=== PATIENT | female | born 1950 | race Caucasian/White ===

== ENCOUNTER 2018-10-25 10:18 | Observation (INO) | payer OTHER, MEDICARE ==
[2018-10-25 10:22] VITALS: BMI 21.9
[2018-10-25] MEDS ORDERED: ASPIRIN 81 MG CHEWABLE TABLETS PO ONE (10:37)
--- NOTE | 2018-10-25 10:41 | PDOC ---
History of Present Illness - General Chief Complaint: Chest Pain Stated Complaint: CHEST PAIN RADIATES LT ARM Time Seen by Provider: 10/25/18 10:33 - History of Present Illness Initial Comments: 10/25/18 11:13 68f with pmh of hyperlipidemia presents to the ED with left sided chest pain and nausea. The pain was sharp enough to wake her up and radiated down her left arm. . She took an aspirin after which the pain somewhat subsided. She had has milder pain over the left chest for the past 3 days on and off. Last saw her central supply assistant 2 years ago, with negative stress test. Denies headache, sob, abdominal pain, diaphoresis, dysuria. Past History - Past Medical History Allergies/Adverse Reactions: Allergies Allergy/AdvReac Type Severity Reaction Status Date / Time artichoke Allergy Verified 10/25/18 10:23 scallops Allergy Verified 10/25/18 10:23 Sulfa (Sulfonamide Allergy Verified 10/25/18 10:23 Antibiotics) COPD: No - Surgical History Abdominal Surgery: Yes (hernia repair) - Suicide/Smoking/Psychosocial Hx Smoking History: Never smoked Hx Alcohol Use: Yes Drug/Substance Use Hx: No Review of Systems - Review of Systems Able to Perform ROS?: Yes Is the patient limited Luxembourgish proficient: No Constitutional: No: Symptoms Reported HEENTM: No: Symptoms Reported Respiratory: No: Symptoms reported Cardiac (ROS): Yes: See HPI ABD/GI: Yes: See HPI : No: Symptoms Reported Musculoskeletal: Yes: See HPI Integumentary: No: Symptoms Reported All Other Systems: Reviewed and Negative *Physical Exam - Vital Signs Last Vital Signs Temp Pulse Resp BP Pulse Ox 98.5 F 79 16 165/67 97 10/25/18 10:19 10/25/18 10:19 10/25/18 10:19 10/25/18 10:19 10/25/18 10:19 - Physical Exam General Appearance: Yes: Nourished, Appropriately Dressed. No: Apparent Distress HEENT: positive: EOMI, JIMI, Normal ENT Inspection Respiratory/Chest: positive: Lungs Clear, Normal Breath Sounds. negative: Chest Tender, Respiratory Distress Cardiovascular: positive: Regular Rhythm, Regular Rate, S1, S2 Gastrointestinal/Abdominal: positive: Normal Bowel Sounds, Flat, Soft. negative : Tender Musculoskeletal: positive: Normal Inspection. negative: CVA Tenderness Extremity: positive: Normal Capillary Refill, Normal Inspection, Normal Range of Motion Integumentary: positive: Normal Color, Dry, Warm Neurologic: positive: Fully Oriented, Alert, Normal Mood/Affect, Normal Response , Responsive ED Treatment Course - LABORATORY CBC & Chemistry Diagram: 10/25/18 10:55 10/25/18 10:55 - ADDITIONAL ORDERS Additional order review: Laboratory Results 10/25/18 10/25/18 10/25/18 10:55 10:55 10:55 PT with INR 11.70 INR 0.99 Sodium 140 Potassium 4.0 Chloride 106 Carbon Dioxide 28 Anion Gap 7 L BUN 14.0 Creatinine 0.7 Est GFR (CKD-EPI)AfAm 102.46 Est GFR (CKD-EPI)NonAf 88.40 Random Glucose 138 H Calcium 9.8 Magnesium 2.3 Total Bilirubin 0.6 AST 20 ALT 31 Alkaline Phosphatase 85 Creatine Kinase 64 Troponin I < 0.02 Total Protein 7.8 Albumin 4.1 10/25/18 10:55 RBC 4.37 MCV 97.5 H MCHC 34.7 RDW 13.2 MPV 8.2 Neutrophils % 67.6 Lymphocytes % 24.8 Monocytes % 6.4 Eosinophils % 0.6 Basophils % 0.6 - RADIOLOGY Radiology Studies Ordered: Category Date Time Status CHEST PA & LAT [RAD] Stat Radiology 10/25/18 10:37 Ordered - Medications Given in the ED: ED Medications Discontinued Medications Generic Name Dose Route Start Last Admin Trade Name Freq PRN Reason Stop Dose Admin Aspirin 162 mg 10/25/18 10:37 10/25/18 11:44 Asa - PO 10/25/18 10:38 162 mg ONCE ONE Administration Ondansetron HCl 4 mg 10/25/18 11:15 10/25/18 11:44 Zofran Injection IVPUSH 10/25/18 11:16 4 mg ONCE ONE Administration Medical Decision Making - Medical Decision Making 10/25/18 12:18 68 with left sided chest pain. Spoke to patient's central supply assistant who confirmed that her EKG today is identical to the one he has from his office. Normal sinus rhythm, left axis deviation, RBBB. She had a subsequent stress test after her last ekg which was normal. Troponin negative. Repeat trops due at 2pm 10/25/18 13:02 Patient now comfortable. Spoke to the patient about staying over for observation vs discharge after 2 trops, decided to be on the safer side and stay overnight for observation. *DC/Admit/Observation/Transfer Diagnosis at time of Disposition: Chest pain - Discharge Dispostion Decision to Admit order: Yes Decision to Admit order Date/Time: Decision to Admit Order Category Date Time Status Decision to Admit to Hospital Routine Admission 10/25/18 13:00 Ordered - Referrals Referrals: Nancy Figueroa MD [Primary Care Provider] - - Patient Instructions - Post Discharge Activity
[2018-10-25] MEDS ORDERED: ONDANSETRON 4 MG/2 ML VIAL IVPUSH ONE (11:15)
[2018-10-25 11:24] LABS: BASO % 0.6 % (0-2.0); EOS % 0.6 % (0-4.5); HEMATOCRIT 42.6 % (32.4-45.2); HEMOGLOBIN 14.8 GM/dL (10.7-15.3); LYMPH % 24.8 % (8-40); MCH 33.8 pg (25.7-33.7); MCHC 34.7 g/dl (32.0-36.0); MEAN CELL VOLUME 97.5 fl (80-96); MEAN PLT VOLUME 8.2 fl (7.5-11.1); MONO % 6.4 % (3.8-10.2); NEUT % 67.6 % (42.8-82.8); PLATELET COUNT 254 K/MM3 (134-434); RBC 4.37 M/mm3 (3.60-5.2); RDW 13.2 % (11.6-15.6); WHITE BLOOD COUNT 6.9 K/mm3 (4.0-10.0)
[2018-10-25 11:31] LABS: INR 0.99 (0.83-1.09); PROTHROMBIN TIME (PATIENT) 11.7 SEC (9.7-13.0)
[2018-10-25] MEDS ORDERED: ONDANSETRON 4 MG/2 ML VIAL ONE (11:41)
[2018-10-25] MEDS ORDERED: ASPIRIN 81 MG CHEWABLE TABLETS ONE (11:41)
[2018-10-25 11:52] LABS: ALBUMIN 4.1 g/dl (3.4-5.0); BILIRUBIN,TOTAL 0.6 mg/dL (0.2-1); CALCIUM 9.8 mg/dL (8.5-10.1); CREATININE 0.7 mg/dL (0.55-1.3); MAGNESIUM 2.3 mg/dL (1.8-2.4); TOT PROT 7.8 g/dl (6.4-8.2)
--- NOTE | 2018-10-25 12:04 | PDOC ---
Documentation entered by Oswaldo Burt SCRIBE, acting as scribe for Francisca Hutchinson MD. Francisca Hutchinson MD: This documentation has been prepared by the Javed barbosa Xhesika, SCRIBE, under my direction and personally reviewed by me in its entirety. I confirm that the documentation accurately reflects all work, treatment, procedures, and medical decision making performed by me. Attending Attestation - Resident Resident Name: Sergio Sánchez - ED Attending Attestation I have performed the following: I have examined & evaluated the patient, The case was reviewed & discussed with the resident, I agree w/resident's findings & plan, Exceptions are as noted - HPI HPI: 10/25/18 11:31 The patient is a 68 year old female with a significant PMH of HLD who presents to the emergency department with 3 days of chest pain. The patient describes the pain as 8/10, intermittent, periodic throughout the day, feels like a pulled muscle, radiating across her chest and down her L arm and worsened with movement. Patient states the pain began on Sunday for a small period of time , recurred again , subsided and woke her up from her sleep this morning. Patient states her symptoms were associated with nausea and lightheadedness this morning. Patient notes she took 1 aspirin. Patient denies any recent travels, long car rides or leg swelling. The patient denies shortness of breath, and dizziness. Denies fever, chills, cough, vomiting, diarrhea and constipation. Denies dysuria, frequency, urgency and hematuria. Allergies: Artichoke, scallops, sulfa Linoleum Floor Installer: at [place] - Physicial Exam PE: 10/25/18 11:50 GENERAL: The patient is in no acute distress. HEAD: Normal EYES: PERRLA, EOMI, sclera anicteric, conjunctiva clear. ENT: Ears normal, nares patent, oropharynx clear without exudates. Moist mucous membranes. NECK: Normal range of motion, supple LUNGS: Breath sounds equal, clear to auscultation bilaterally. No wheezes, and no crackles. HEART:Regular rate and rhythm, normal S1 and S2 ABDOMEN: Soft, nontender, normoactive bowel sounds. No guarding, no rebound. EXTREMITIES: Normal range of motion, no edema. NEUROLOGICAL: Cranial nerves II through XII grossly intact. Normal speech. No focal neurological deficits. MUSCULOSKELETAL: One area with mild chest wall tenderness, no deformities noted SKIN: No rashes noted 10/25/18 12:01 - Medical Decision Making 10/25/18 11:11 EKG: NSR rate of 88 bpm, LAD, RBBB, intervals - pr:148ms, QRS:158ms (prolonged) , QTc:474ms no old EKG for comparison 10/25/18 12:02 Laboratory Tests 10/25/18 10/25/18 10/25/18 10:55 10:55 10:55 WBC 6.9 Hgb 14.8 Hct 42.6 Plt Count 254 INR BUN 14.0 Creatinine 0.7 Creatine Kinase 64 Troponin I < 0.02 10/25/18 10:55 WBC Hgb Hct Plt Count INR 0.99 BUN Creatinine Creatine Kinase Troponin I call placed to patient's gate operator Pt EKG is similar to prior EKG He can see her in the office Pt symptoms are new Will plan to place on observation Heart Score/ECG Review - History History: Slightly suspicious - Electrocardiogram EKG: Normal - Age Age: >/= 65 - Risk Factors Risk Factors Heart Score: Yes Hx Hypercholesterolemia Based on the list above the patient has:: 1-2 risk factors - Troponin Troponin: </= normal limit - Score Heart Score - Total: 3
--- NOTE | 2018-10-25 16:12 | CON.CARD ---
Consult Consult Specialty:: Cardiology Referred by:: Dr. Hager - ED Reason for Consultation:: Chest pain - History of Present Illness Chief Complaint: Chest pain History of Present Illness: 68 year old woman with a PMHx of hyperlipidemia and RBBB on ECG who presents to ED 10/25/18 with 3 days of left sided chest pain. The patient describes the pain as 8/10, intermittent, periodic throughout the day, feels like a pulled muscle, radiating across her chest and down her left arm and worsened with movement. Significant local tenderness can be reproduced during physical exam. Her chest pain is non-exertional. She has good exercise tolerance without exertional chest pain or SOB. ECG 10/25/18 Sinus rhythm, LAD, RBBB. No ischemic ST-T changes. CK 64, troponin, 0.02 - History Source History Provided By: Patient, Significant Other, Medical Record Limitations to Obtaining History: No Limitations - Past Medical History Cardio/Vascular: Yes: Hyperlipdemia - Alcohol/Substance Use Hx Alcohol Use: Yes - Smoking History Smoking history: Never smoked Home Medications - Allergies Allergies/Adverse Reactions: Allergies Allergy/AdvReac Type Severity Reaction Status Date / Time artichoke Allergy Verified 10/25/18 10:23 scallops Allergy Verified 10/25/18 10:23 Sulfa (Sulfonamide Allergy Verified 10/25/18 10:23 Antibiotics) Review of Systems - Review of Systems Constitutional: reports: No Symptoms Eyes: reports: No Symptoms HENT: reports: No Symptoms Neck: reports: No Symptoms Cardiovascular: reports: Chest Pain Respiratory: reports: No Symptoms Gastrointestinal: reports: No Symptoms Genitourinary: reports: No Symptoms Breasts: reports: No Symptoms Reported Musculoskeletal: reports: No Symptoms Integumentary: reports: No Symptoms Neurological: reports: No Symptoms Endocrine: reports: No Symptoms Hematology/Lymphatic: reports: No Symptoms Vital Signs: Vital Signs Temperature 98.5 F 10/25/18 10:19 Pulse Rate 79 10/25/18 10:19 Respiratory Rate 16 10/25/18 10:19 Blood Pressure 165/67 10/25/18 10:19 O2 Sat by Pulse Oximetry (%) 97 10/25/18 10:19 General: Well developed. Well nourished. No acute distress. Head: Normocephalic. Atraumatic, Eyes: PERRLA, EOMI. Sclerae anicteric. Conjunctivae clear. Neck: Supple. No JVD. No bruits. Heart: Normal S1, S2: Regular rhythm and rate. No murmur. No gallop or rub. Lungs: Symmetrical air entry. Clear to auscultation. No crackles. No wheezing or rhonchi. Abdomen: Soft. Bowel sound positive. Non tender. No masses. Extremities: No edema. No clubbing or cyanosis. PD 2+, equal bilaterally. Neuro: Intact, no focal findings. AAO X3. - Other Data Labs, Other Data: CBC, BMP 10/25/18 10:55 10/25/18 10:55 INR, PTT INR 0.99 (0.83-1.09) 10/25/18 10:55 Troponin, BNP 10/25/18 10:55 Troponin I < 0.02 Troponin, BNP 10/25/18 10:55 Troponin I < 0.02 Assessment/Plan 68 year old woman with a PMHx of hyperlipidemia and RBBB on ECG who presents to ED 10/25/18 with 3 days of left sided chest pain. Significant local tenderness can be reproduced during physical exam. ECG 10/25/18 Sinus rhythm, LAD, RBBB. No ischemic ST-T changes. CK 64, troponin, 0.02 Atypical chest pain with local tenderness. First set cardiac markers are negative. No ECG changes of ischemia. It is likely musculoskeletal origin, not acute coronary syndrome. The patient can be discharged from ED if second set cardiac marker remains negative. Out-pt cardiac follow up with her dry mop maker. May use NSAIDs short term for the pain. Please do not hesitate to call us for reconsult at any time if any further questions or additional issue arises regarding this patient.
--- NOTE | 2018-10-25 17:28 | HP ---
Admitting History and Physical - Admission Chief Complaint: chest pain History Source: Patient - Past Medical History Cardiovascular: Yes: Hyperlipdemia - Smoking History Smoking history: Never smoked - Alcohol/Substance Use Hx Alcohol Use: Yes Home Medications - Allergies Allergies/Adverse Reactions: Allergies Allergy/AdvReac Type Severity Reaction Status Date / Time artichoke Allergy Verified 10/25/18 10:23 scallops Allergy Verified 10/25/18 10:23 Sulfa (Sulfonamide Allergy Verified 10/25/18 10:23 Antibiotics) - Home Medications Home Medications: Ambulatory Orders Unobtainable 10/25/18 Family Disease History - Family Disease History Family Disease History: Heart Disease: Father, Mother Review of Systems - Review of Systems Cardiovascular: reports: Chest Pain Physical Examination Vital Signs: Vital Signs Temperature 98.5 F 10/25/18 10:19 Pulse Rate 79 10/25/18 10:19 Respiratory Rate 16 10/25/18 10:19 Blood Pressure 165/67 10/25/18 10:19 O2 Sat by Pulse Oximetry (%) 97 10/25/18 10:19 Constitutional: Yes: No Distress Cardiovascular: Yes: Regular Rate and Rhythm Respiratory: Yes: CTA Bilaterally Gastrointestinal: Yes: Normal Bowel Sounds, Soft Extremities: Yes: WNL Labs: CBC, BMP 10/25/18 10:55 10/25/18 10:55 Problem List - Problems (1) Chest pain Code(s): R07.9 - CHEST PAIN, UNSPECIFIED Assessment/Plan trops negative times two patiwnt will have outpatient follow up with her cardiologsit patient expressed desire to leave Visit type - Emergency Visit Emergency Visit: Yes ED Registration Date: 10/25/18 Care time: The patient presented to the Emergency Department on the above date and was hospitalized for further evaluation of their emergent condition. - New Patient This patient is new to me today: Yes Date on this admission: 10/25/18 - Critical Care Critical Care patient: No ATTENDING PHYSICIAN STATEMENT I saw and evaluated the patient. I reviewed the resident's note and discussed the case with the resident. I agree with the resident's findings and plan as documented. SUBJECTIVE: OBJECTIVE: ASSESSMENT AND PLAN:
--- NOTE | 2018-10-25 17:29 | PN ---
Teaching Attending Note Name of Resident: Joana Hager ATTENDING PHYSICIAN STATEMENT I saw and evaluated the patient. I reviewed the resident's note and discussed the case with the resident. I agree with the resident's findings and plan as documented. SUBJECTIVE: OBJECTIVE: Vital Signs Period Temp Pulse Resp BP Sys/Gardiner Pulse Ox Last 24 Hr 98.5 F 79 16 165/67 97 Laboratory Tests 10/25/18 10/25/18 10/25/18 10:55 10:55 10:55 WBC 6.9 RBC 4.37 Hgb 14.8 Hct 42.6 MCV 97.5 H MCH 33.8 H MCHC 34.7 RDW 13.2 Plt Count 254 MPV 8.2 Absolute Neuts (auto) 4.6 Neutrophils % 67.6 Lymphocytes % 24.8 Monocytes % 6.4 Eosinophils % 0.6 Basophils % 0.6 Nucleated RBC % 0 PT with INR INR Sodium 140 Potassium 4.0 Chloride 106 Carbon Dioxide 28 Anion Gap 7 L BUN 14.0 Creatinine 0.7 Est GFR (CKD-EPI)AfAm 102.46 Est GFR (CKD-EPI)NonAf 88.40 Random Glucose 138 H Calcium 9.8 Magnesium 2.3 Total Bilirubin 0.6 AST 20 ALT 31 Alkaline Phosphatase 85 Creatine Kinase 64 Troponin I < 0.02 Total Protein 7.8 Albumin 4.1 10/25/18 10/25/18 10:55 15:55 WBC RBC Hgb Hct MCV MCH MCHC RDW Plt Count MPV Absolute Neuts (auto) Neutrophils % Lymphocytes % Monocytes % Eosinophils % Basophils % Nucleated RBC % PT with INR 11.70 INR 0.99 Sodium Potassium Chloride Carbon Dioxide Anion Gap BUN Creatinine Est GFR (CKD-EPI)AfAm Est GFR (CKD-EPI)NonAf Random Glucose Calcium Magnesium Total Bilirubin AST ALT Alkaline Phosphatase Creatine Kinase Troponin I < 0.02 Total Protein Albumin ASSESSMENT AND PLAN:
--- NOTE | 2018-10-25 17:55 | DS ---
Physical Exam: SUBJECTIVE: Patient seen and examined. She has no complaints. OBJECTIVE: Vital Signs Period Temp Pulse Resp BP Sys/Gardiner Pulse Ox Last 24 Hr 98.5 F 79 16 165/67 97-99 PHYSICAL EXAM GENERAL: The patient is awake, alert, and fully oriented, in no acute distress. LUNGS: Breath sounds equal, clear to auscultation bilaterally, no wheezes, no crackles, no accessory muscle use. HEART: Regular rate and rhythm, S1, S2 without murmur, rub or gallop. ABDOMEN: Soft, nontender, nondistended, normoactive bowel sounds, no guarding, no rebound, no hepatosplenomegaly, no masses. EXTREMITIES: 2+ pulses, warm, well-perfused, no edema. LABS Laboratory Results - last 24 hr 10/25/18 10/25/18 10/25/18 10:55 10:55 10:55 WBC 6.9 RBC 4.37 Hgb 14.8 Hct 42.6 MCV 97.5 H MCH 33.8 H MCHC 34.7 RDW 13.2 Plt Count 254 MPV 8.2 Absolute Neuts (auto) 4.6 Neutrophils % 67.6 Lymphocytes % 24.8 Monocytes % 6.4 Eosinophils % 0.6 Basophils % 0.6 Nucleated RBC % 0 PT with INR INR Sodium 140 Potassium 4.0 Chloride 106 Carbon Dioxide 28 Anion Gap 7 L BUN 14.0 Creatinine 0.7 Est GFR (CKD-EPI)AfAm 102.46 Est GFR (CKD-EPI)NonAf 88.40 Random Glucose 138 H Calcium 9.8 Magnesium 2.3 Total Bilirubin 0.6 AST 20 ALT 31 Alkaline Phosphatase 85 Creatine Kinase 64 Troponin I < 0.02 Total Protein 7.8 Albumin 4.1 10/25/18 10/25/18 10:55 15:55 WBC RBC Hgb Hct MCV MCH MCHC RDW Plt Count MPV Absolute Neuts (auto) Neutrophils % Lymphocytes % Monocytes % Eosinophils % Basophils % Nucleated RBC % PT with INR 11.70 INR 0.99 Sodium Potassium Chloride Carbon Dioxide Anion Gap BUN Creatinine Est GFR (CKD-EPI)AfAm Est GFR (CKD-EPI)NonAf Random Glucose Calcium Magnesium Total Bilirubin AST ALT Alkaline Phosphatase Creatine Kinase Troponin I < 0.02 Total Protein Albumin HOSPITAL COURSE: Date of Admission:10/25/18 Date of Discharge: 10/25/18 Discharge Summary Reason For Visit: CHEST PAIN Current Active Problems Hyperlipidemia (Chronic) Chest pain (Acute) Condition: Stable - Instructions Diet, Activity, Other Instructions: You were admitted to [facility] on October 25 after coming to the ER with chest pain. Blood work and EKG showed no signs of a heart attack. You were seen by a insurance counselor, Dr. Dunbar. It was thought that your pain was musculoskeletal in origin. You are being discharged home on October 25. You may resume your usual medications, diet, and activity. You may take ibuprofen if you need for the pain. Please schedule appointments to see your insurance counselor and your PCP Dr. Figueroa in 1-2 weeks. Disposition: HOME This patient is new to me today: No Emergency Visit: Yes ED Registration Date: 10/25/18 Care time: The patient presented to the Emergency Department on the above date and was hospitalized for further evaluation of their emergent condition. Critical Care patient: No
[2018-10-25 18:37] VITALS: BP 130/70; PULSE 65; TEMP 98.3
[2018-10-26] MEDS ORDERED: ENOXAPARIN NA (PORCINE) 40 MG/0.4 ML DISP.SYRIN SQ SCH (10:00)
--- NOTE | 2018-10-26 16:07 | EKG ---
Test Reason : Blood Pressure : / mmHG Vent. Rate : 088 BPM Atrial Rate : 088 BPM P-R Int : 148 ms QRS Dur : 158 ms QT Int : 392 ms P-R-T Axes : 063 -37 012 degrees QTc Int : 474 ms NORMAL SINUS RHYTHM POSSIBLE LEFT ATRIAL ENLARGEMENT LEFT AXIS DEVIATION RIGHT BUNDLE BRANCH BLOCK ABNORMAL ECG NO PREVIOUS ECGS AVAILABLE Confirmed by ARI CAZARES, STEPHAN ([id number]) on 10/26/2018 4:07:05 PM Referred By: Confirmed By:STEPHAN CHAPMAN MD
== END 2018-10-25 18:40 | disposition home or self-care (01) ==
LOC: JER 10:18 → JERBED 13:00
PROVIDERS: ADMIT Internal Medicine; ATTEND Internal Medicine
PROC: 3E033GC Introduction of Other Therapeutic Substance into Peripheral Vein, Percutaneous Approach (ICD-10-PCS; principal; 2018-10-25)
DX: R07.89 Other chest pain (principal); E78.5 Hyperlipidemia, unspecified; Z88.2 Allergy status to sulfonamides; Z91.013 Allergy to seafood
CPT/HCPCS: 36415; 71046-TC-FY; 80053; 82550; 83735; 84484; 85025; 85610; 93005; 93010; 96374; 99285-25; G0378

== ENCOUNTER 2019-12-24 07:34 | Day surgery (SDC) | payer OTHER, MEDICARE ==
[2019-12-22 11:46] VITALS: BMI 21.5
--- OUTSIDE RECORDS SUMMARY | 2019-12-24 07:37 | XMS ---
:1950 Author Organization [facility] Support Name Relationship Address Phone RE, RETIRED Unavailable Unavailable Unavailable RE Unavailable Unavailable Unavailable [employer] Unavailable [address] [phone] [place] [address] FARHAT XAVIER [address] [place] [address] Re-disclosure Warning The records that you are about to access may contain information from federally- assisted alcohol or drug abuse programs. If such information is present, then the following federally mandated warning applies: This information has been disclosed to you from records protected by federal confidentiality rules (42 CFR part 2). The federal rules prohibit you from making any further disclosure of this information unless further disclosure is expressly permitted by the written consent of the person to whom it pertains or as otherwise permitted by 42 CFR part 2. A general authorization for the release of medical or other information is NOT sufficient for this purpose. The Federal rules restrict any use of the information to criminally investigate or prosecute any alcohol or drug abuse patient.The records that you are about to access may contain highly sensitive health information, the redisclosure of which is protected by Article 27-F of the [facility] Public Health law. If you continue you may haveaccess to information: Regarding HIV / AIDS; Provided by facilities licensed or operated by the [facility] Office of Mental Health; or Provided by the [facility] Office for People With Developmental Disabilities. If such information is present, then the following [facility] mandated warning applies: This information has been disclosed to you from confidential records which are protected by state law. State law prohibits you from making any further disclosure of this information without the specific written consent of the person to whom it pertains, or as otherwise permitted by law. Any unauthorized further disclosure in violation of state law may result in a fine or snf sentence or both. A general authorization for the release of medical or other information is NOT sufficient authorization for further disclosure. Insurance Providers Payer name Policy type Policy ID Covered Covered alliance party's Policy P renee / Coverage alliance party ID relationship to [employer] Inf ormation type pardo MEDICARE [id number] SP [id number] [facility] [id number] SP [id number] [employer] MEDICARE [id number] A Results ID Date Data Source [id number] 11/17/2019 04:47:00 PM EDT [facility] Name Value Range Interpretation Description Data Sup porting Code Source(s) Document(s ) SARS [facility] coronavirus 2 RNA This lab was ordered by [facility] and reported by [facility]. ID Date Data Source [id number] 09/30/2019 12:00:00 PM EDT [facility] Name Value Range Interpretation Description Data Sup porting Code Source(s) Document(s ) SARS [facility] coronavirus 2 RNA This lab was ordered by [facility] and reported by [facility]. ID Date Data Source [id number] 07/22/2019 12:00:00 AM EDT [facility] Name Value Range Interpretation Code Description Data Kassandra rce(s) Supporting Document(s ) 2019-nCoV [facility] RNA XXX KAI+probe- Imp This lab was ordered by [facility] and reported by [employer] Procedure
[2019-12-24] MEDS ORDERED: PROPOFOL 20 ML ONE ×3 (07:47)
[2019-12-24] MEDS ORDERED: LIDOCAINE HCL/PF 2% SDV 5ML VIAL ONE (07:47)
[2019-12-24 08:48] VITALS: TEMP 97.8
[2019-12-24 09:03] VITALS: BP 112/55; PULSE 70
== END 2019-12-24 09:53 | disposition home or self-care (01) ==
LOC: FASU-ENDO 07:34
PROVIDERS: ATTEND Internal Medicine Gastroenterology
PROC: 0DJD8ZZ Inspection of Lower Intestinal Tract, Via Natural or Artificial Opening Endoscopic (ICD-10-PCS; principal; 2019-12-24 08:17)
DX: Z09 Encounter for follow-up examination after completed treatment for conditions other than malignant neoplasm (principal); Z86.010 Personal history of colon polyps; Z80.0 Family history of malignant neoplasm of digestive organs; K57.30 Diverticulosis of large intestine without perforation or abscess without bleeding